=== PATIENT | male | born 2000 | race Caucasian/White ===

== ENCOUNTER 2020-07-29 16:54 | Emergency (ER) | payer SELFPAY ==
[~2020-07-29] VITALS: Ht 162.6 cm; Wt 59.9 kg
[2020-07-29] MEDS ORDERED: FENTANYL PF 100MCG/2ML AMPUL IV ONE ×2 (17:00→18:00)
[2020-07-29] MEDS ORDERED: MIDAZOLAM HCL 2 MG/2ML VIAL IV ONE (17:00)
--- NOTE | 2020-07-29 17:00 | NUR ---
CONSENT FOR CLOSE REDUCTION OF RIGHT SHOULDER W/ MODERATE SEDATION OBTAINED FROM THE PATIENT. PT IS UNABLE TO SIGN D/T THE DISLOCATION. VERBAL CONSENT OBTAINED AND WITNESSED BY ME AND NAM MA RN.
--- NOTE | 2020-07-29 17:02 | NUR ---
BIBRA FROM HOME TO ER BED 1. AAOX4. NOT IN RESP DISTRESS. BROUGHT IN FOR R SHOULDER DISLOCATION AND PAIN. PT REPORT SLIPPED OF ON THE SIDE OF THE POOL.
[2020-07-29] MEDS ORDERED: FENTANYL PF 100MCG/2ML AMPUL ONE (17:04)
[2020-07-29] MEDS ORDERED: MIDAZOLAM HCL 5 MG/5ML VIAL ONE (17:04)
--- NOTE | 2020-07-29 17:05 | NUR ---
TIME OUT FOR PROCEDURE
--- NOTE | 2020-07-29 17:07 | NUR ---
ADDITIONAL DOSE ADDED BY DR. CABRERA INTRA PROCEDURE. MEDICATION WAS DRAWN FROM THE FIRST VIAL OF SUBLIMAZED PULL. 1ST DOSE 50MCG + 2ND DOSE 50MCG = 100MCG
--- NOTE | 2020-07-29 17:08 | NUR ---
REDUCTION COMPLETED BY SHANAE CABRERA. XRAY AT BEDSIDE
--- NOTE | 2020-07-29 17:09 | NUR ---
SLING PLACED ON R ARM
[2020-07-29 18:20] VITALS: BP 132/68
--- NOTE | 2020-07-29 18:21 | NUR ---
Patient discharged to home in stable condition. Written and verbal after care instructions given. Patient verbalizes understanding of instruction.IV removed. Catheter intact and site benign. Pressure and 4x4 applied to site. No bleeding noted. Pt ambulatory with a steady gait
== END 2020-07-29 18:22 | disposition home or self-care (01) ==
LOC: ER 16:54
DX: S43.084A Other dislocation of right shoulder joint, initial encounter (principal); W01.0XXA Fall on same level from slipping, tripping and stumbling without subsequent striking against object, initial encounter; Y93.89 Activity, other specified; Y92.89 Other specified places as the place of occurrence of the external cause; Y99.8 Other external cause status
CPT/HCPCS: 23650; 73020; 96374; 99152; 99285; J2250; J3010; J7030; G0500